=== PATIENT | female | born 2000 | race Caucasian/White ===

== ENCOUNTER 2022-12-23 20:05 | Emergency (ER) | payer MEDICAID ==
[~2022-12-23] VITALS: Ht 154.9 cm; Wt 69.4 kg
[2022-12-23 20:05] VITALS: BP_SYST 103; PULSE 127; RESP 16; TEMP 98.8; O2SAT 97
[2022-12-23] MEDS ORDERED: TRAM50TA2 PO (22:31)
[2022-12-23] MEDS ORDERED: ONDA-8 TL (22:31)
[2022-12-23] MEDS ORDERED: MAGN296S8 PO (22:31)
[2022-12-23 22:48] VITALS: PULSE 111
[2022-12-23] MEDS ORDERED: NITR-85 PO (22:51)
== END 2022-12-23 22:48 | disposition home or self-care (01) ==
LOC: SED 20:05
DX: R10.9 Unspecified abdominal pain (principal); K59.00 Constipation, unspecified; R11.10 Vomiting, unspecified; Z79.899 Other long term (current) drug therapy
CPT/HCPCS: 99283